=== PATIENT | male | born 1990 | race Caucasian/White ===

== ENCOUNTER 2019-08-10 13:15 | Emergency (ER) | payer SELFPAY ==
[~2019-08-10] VITALS: Ht 175.3 cm; Wt 90.7 kg
[~2019-08-10 13:15] MED LIST: PRED20TA PO
[2019-08-10] MEDS ORDERED: IV NORMAL SALINE 1000ML BAG 1,000 ML IV ONE (14:00)
[2019-08-10] MEDS ORDERED: MORPHINE SULFATE 4 MG/ML VIAL. IV ONE (14:15)
[2019-08-10] MEDS ORDERED: ONDANSETRON PF 4 MG/2 ML VIAL. IV ONE (14:15)
--- NOTE | 2019-08-10 14:24 | RAD ---
Study: CT abdomen and pelvis without contrast Indication: Right flank pain. Comparison: None. Technique: Helical CT imaging performed of the abdomen and pelvis without the use of intravenous contrast. Sagittal and coronal reformats were obtained. Findings: The visualized lungs and heart are unremarkable. Small right middle lobe calcified granuloma. The liver, spleen, adrenal glands, pancreas, kidneys and stomach are within normal limits. Nonobstructed small bowel. The appendix is normal. Unremarkable colon. No free fluid or air. No pathologically enlarged lymph nodes. Normal caliber of the major vascular structures. No acute osseous abnormality. The last well-formed disc space is designated L5-S1 there is a partially formed disc space at S1-S2 with lumbarization of the S1 vertebral body and bilateral pseudoarticulation formation. Impression: No acute abnormality seen throughout the abdomen or pelvis to account for the patient's symptoms. Specifically, no nephrolithiasis or hydroureteronephrosis bilaterally. Electronically signed by: MARGARITA MATOS MD (08/10/2019 2:21 PM) [facility]
--- NOTE | 2019-08-10 14:34 | RAD ---
Scrotal ultrasound HISTORY: Right testicle pain after lifting. FINDINGS: Right side: Right testicle measures 4.6 x 2.4 x 2.4 cm, with homogeneous echotexture and vascularity. No focal lesion. Right epididymis unremarkable. Small hydrocele. No obvious hernia is identified in the right groin. Left side: Testicle measures 4.3 x 2.9 x 2.2 cm. Homogeneous echotexture and vascularity. No focal lesion is seen. Left epididymis unremarkable. Small hydrocele. IMPRESSION: 1. Small hydroceles bilaterally. 2. No evidence of sonographic testicle or epididymis abnormality. Electronically signed by: Bijan Bucio MD (08/10/2019 2:31 PM) [facility]
[2019-08-10 14:45] LABS: BILIRUBIN,URINE NEGATIVE (NEG); CLARITY,URINE CLEAR; COLOR,URINE AMBER; NITRITE,URINE NEGATIVE (NEG); PH,URINE 5.5; PROTEIN,URINE NEGATIVE (NEG-TRACE)
--- NOTE | 2019-08-10 14:52 | PHYS DOC ---
Past Medical History Past Medical History: Kidney Stone Past Surgical History: Other Additional Information: chewing tobacco daily Alcohol Use: Rarely Drug Use: Marijuana Adult General Chief Complaint Chief Complaint: TESTICULAR PAIN OR INJURY HPI HPI Patient is a 29 year old male who presents to the ER with complaints of sudden onset of R testicle pain after feeling something bulge in his R groin after lifting heavy bricks. He reports a history of kidney stones and states that he has also had increased frequency of urination and dysuria for several days. He currently complains of R flank, R groin, and R testicle pain. His pain is currently a 9/10, there are no alleviating factors. Review of Systems Review of Systems Constitutional: Denies fever or chills [] Eyes: Denies change in visual acuity, redness, or eye pain [] HENT: Denies nasal congestion or sore throat [] Respiratory: Denies cough or shortness of breath [] Cardiovascular: No additional information not addressed in HPI [] GI: Denies nausea, vomiting, bloody stools or diarrhea; see HPI : Denies hematuria; see HPI Musculoskeletal: Denies joint pain or CVA tenderness [] Integument: Denies rash or skin lesions [] Neurologic: Denies headache Complete systems were reviewed and found to be within normal limits, except as documented in this note. Current Medications Current Medications Current Medications Medications (Trade) Dose Ordered Sig/Ac Start Time Stop Time Status Last Admin Dose Admin Azithromycin (Zithromax) 1,000 mg 1X ONCE 08/10/19 15:30 08/10/19 15:31 DC 08/10/19 16:24 1,000 MG Ceftriaxone Sodium (Rocephin Im) 250 mg 1X ONCE 08/10/19 15:30 08/10/19 15:31 Cancel Ceftriaxone Sodium (Rocephin) 0.25 gm 1X ONCE 08/10/19 15:45 08/10/19 15:46 DC 08/10/19 16:24 0.25 GM Morphine Sulfate (Morphine Sulfate) 4 mg 1X ONCE 08/10/19 14:15 08/10/19 14:16 DC 08/10/19 15:10 4 MG Ondansetron HCl (Zofran) 4 mg 1X ONCE 08/10/19 14:15 08/10/19 14:16 DC 08/10/19 15:10 4 MG Sodium Chloride 1,000 ml @ 1,000 mls/hr 1X ONCE 08/10/19 14:00 08/10/19 14:59 DC 08/10/19 14:49 1,000 MLS/HR Allergies Allergies Allergies Coded Allergies Type Severity Reaction Last Updated Verified No Known Drug Allergies 04/02/16 No Physical Exam Physical Exam Constitutional: Well developed, well nourished, no acute distress, non-toxic appearance. [] HENT: Normocephalic, atraumatic, bilateral external ears normal, nose normal. [] Eyes: PERRLA, EOMI, conjunctiva normal, no discharge. [] Neck: Normal range of motion, no tenderness, supple, no stridor. [] Cardiovascular:Heart rate regular rhythm, no murmur [] Lungs & Thorax: Bilateral breath sounds clear to auscultation [] Abdomen: Bowel sounds normal, soft, no tenderness, no masses, no pulsatile masses. : R testicle tender to palpation no erythema, no warmth, no urethral erythema [] Skin: Warm, dry, no erythema, no rash. [] Back: No CVA tenderness. [] Extremities: No cyanosis, no clubbing, ROM intact, no edema. [] Neurologic: Alert and oriented X 3,no focal deficits noted. [] Psychologic: Affect normal, judgement normal, mood normal. [] Current Patient Data Vital Signs Vital Signs Date Time Temp Pulse Resp B/P (MAP) Pulse Ox O2 Delivery O2 Flow Rate FiO2 08/10/19 15:10 16 99 Room Air 08/10/19 13:30 97.8 111 137/79 (98) 97.8 Lab Values Laboratory Tests Test 08/10/19 14:35 08/10/19 14:45 Urine Collection Type Unknown Urine Color Lindsey Urine Clarity Clear Urine pH 5.5 Urine Specific Sherman >=1.030 Urine Protein Negative mg/dL (NEG-TRACE) Urine Glucose (UA) Negative mg/dL (NEG) Urine Ketones (Stick) Negative mg/dL (NEG) Urine Blood Negative (NEG) Urine Nitrite Negative (NEG) Urine Bilirubin Negative (NEG) Urine Urobilinogen Dipstick 1.0 mg/dL (0.2 mg/dL) Urine Leukocyte Esterase Small (NEG) Urine RBC 0 /HPF (0-2) Urine WBC 11-20 /HPF (0-4) Urine Squamous Epithelial Cells Occ /LPF Urine Bacteria Few /HPF (0-FEW) Urine Mucus Marked /LPF White Blood Count 7.7 x10^3/uL (4.0-11.0) Red Blood Count 5.22 x10^6/uL (4.30-5.70) Hemoglobin 16.1 g/dL (13.0-17.5) Hematocrit 45.9 % (39.0-53.0) Mean Corpuscular Volume 88 fL (79-100) Mean Corpuscular Hemoglobin 31 pg (25-35) Mean Corpuscular Hemoglobin Concent 35 g/dL (31-37) Red Cell Distribution Width 13.2 % (11.5-14.5) Platelet Count 280 x10^3/uL (140-400) Neutrophils (%) (Auto) 65 % (31-73) Lymphocytes (%) (Auto) 25 % (24-48) Monocytes (%) (Auto) 9 % (0-9) Eosinophils (%) (Auto) 1 % (0-3) Basophils (%) (Auto) 0 % (0-3) Neutrophils # (Auto) 5.0 x10^3/uL (1.8-7.7) Lymphocytes # (Auto) 1.9 x10^3/uL (1.0-4.8) Monocytes # (Auto) 0.7 x10^3/uL (0.0-1.1) Eosinophils # (Auto) 0.0 x10^3/uL (0.0-0.7) Basophils # (Auto) 0.0 x10^3/uL (0.0-0.2) Sodium Level 142 mmol/L (136-145) Potassium Level 3.4 mmol/L (3.5-5.1) L Chloride Level 104 mmol/L (98-107) Carbon Dioxide Level 29 mmol/L (21-32) Anion Gap 9 (6-14) Blood Urea Nitrogen 17 mg/dL (8-26) Creatinine 1.2 mg/dL (0.7-1.3) Estimated GFR (Cockcroft-Gault) 72.6 BUN/Creatinine Ratio 14 (6-20) Glucose Level 98 mg/dL (70-99) Calcium Level 10.0 mg/dL (8.5-10.1) Total Bilirubin 0.7 mg/dL (0.2-1.0) Aspartate Amino Transferase (AST) 32 U/L (15-37) Alanine Aminotransferase (ALT) 71 U/L (16-63) H Alkaline Phosphatase 86 U/L (46-116) Total Protein 8.5 g/dL (6.4-8.2) H Albumin 4.3 g/dL (3.4-5.0) Albumin/Globulin Ratio 1.0 (1.0-1.7) Laboratory Tests 08/10/19 14:45 Laboratory Tests 08/10/19 14:45 EKG EKG [] Radiology/Procedures Radiology/Procedures PROCEDURE: CT ABDOMEN PELVIS WO CONTRAST Study: CT abdomen and pelvis without contrast Indication: Right flank pain. Comparison: None. Technique: Helical CT imaging performed of the abdomen and pelvis without the use of intravenous contrast. Sagittal and coronal reformats were obtained. Findings: The visualized lungs and heart are unremarkable. Small right middle lobe calcified granuloma. The liver, spleen, adrenal glands, pancreas, kidneys and stomach are within normal limits. Nonobstructed small bowel. The appendix is normal. Unremarkable colon. No free fluid or air. No pathologically enlarged lymph nodes. Normal caliber of the major vascular structures. No acute osseous abnormality. The last well-formed disc space is designated L5-S1 there is a partially formed disc space at S1-S2 with lumbarization of the S1 vertebral body and bilateral pseudoarticulation formation. Impression: No acute abnormality seen throughout the abdomen or pelvis to account for the patient's symptoms. Specifically, no nephrolithiasis or hydroureteronephrosis bilaterally.[] PROCEDURE: TESTICULAR/SCROTUM Scrotal ultrasound HISTORY: Right testicle pain after lifting. FINDINGS: Right side: Right testicle measures 4.6 x 2.4 x 2.4 cm, with homogeneous echotexture and vascularity. No focal lesion. Right epididymis unremarkable. Small hydrocele. No obvious hernia is identified in the right groin. Left side: Testicle measures 4.3 x 2.9 x 2.2 cm. Homogeneous echotexture and vascularity. No focal lesion is seen. Left epididymis unremarkable. Small hydrocele. IMPRESSION: 1. Small hydroceles bilaterally. 2. No evidence of sonographic testicle or epididymis abnormality. Course & Med Decision Making Course & Med Decision Making Pertinent Labs and Imaging studies reviewed. (See chart for details) dx: UTI, suspected STI, R orchitis CBC and CMP unremarkable; UA concerning for 11-[address] abd/pel negative, Testicular US negative Pt given 1 gm PO zithromax, 250 IV rocephin in the ER for suspected STI Prescription written for keflex 500 mg QID x7 days Pt was given 1L NS 4 mg of morphine and 4 mg of zofran in the ER, reports decrea sed pain after meds. PT instructed to follow up with Urology or PCP for further evaluation of chronic increased urinary frequency concerns. Patient verbalized an understanding of home care, medications, follow-up, and return to ED instructions and was in agreement with the plan of care. [] Dragon Disclaimer Dragon Disclaimer This electronic medical record was generated, in whole or in part, using a voice recognition dictation system. Departure Departure Impression: Primary Impression: Urinary tract infection Additional Impressions: Contact with and (suspected) exposure to infections with a predominantly sexual mode of transmission Orchitis of right testicle Disposition: HOME, SELF-CARE Condition: STABLE Referrals: NO PCP (PCP) EVAN MOORE MD Patient Instructions: Orchitis, Urinary Tract Infection, [id number] Additional Instructions: Fill prescription and use as directed. Follow up with a primary care doctor or Dr. Moore for further evaluation of your chronic problems with urination. Scripts Cephalexin (KEFLEX) 500 Mg Capsule 500 MG PO QID for 7 Days, #28 CAP 0 Refills Prov: DANIAL GANDHI APRN 08/10/19 Problem Qualifiers Primary Impression: Urinary tract infection Urinary tract infection type: site unspecified Hematuria presence: without hematuria Qualified Codes: N39.0 - Urinary tract infection, site not specified DANIAL GANDHI APRN Aug 10, 2019 14:52
[2019-08-10 14:58] LABS: BASO % 0 % (0-3); EOS % 1 % (0-3); HEMATOCRIT 45.9 % (39.0-53.0); HEMOGLOBIN 16.1 g/dL (13.0-17.5); LYMPH # 1.9 x10^3/uL (1.0-4.8); LYMPH % 25 % (24-48); MEAN CORPUSCULAR HEMOGLOBIN 31 pg (25-35); MEAN CORPUSCULAR HGB CONC 35 g/dL (31-37); MEAN CORPUSCULAR VOLUME 88 fL (79-100); MONO # 0.7 x10^3/uL (0.0-1.1); MONO % 9 % (0-9); NEUT % 65 % (31-73); PLATELET COUNT 280 x10^3/uL (140-400); RED BLOOD COUNT 5.22 x10^6/uL (4.30-5.70); RED CELL DISTRIBUTION WIDTH 13.2 % (11.5-14.5); WHITE BLOOD COUNT 7.7 x10^3/uL (4.0-11.0)
[2019-08-10 15:06] LABS: SQUAMOUS EPITHELIAL CELL,UR OCC /LPF
[2019-08-10 15:07] LABS: RBC,URINE 0 /HPF (0-2)
[2019-08-10 15:08] LABS: BACTERIA,URINE FEW /HPF (0-FEW)
[2019-08-10 15:08] LABS: CREATININE 1.2 mg/dL (0.7-1.3); GFR 72.6; POTASSIUM 3.4 mmol/L (3.5-5.1)
[2019-08-10 15:14] LABS: ALBUMIN 4.3 g/dL (3.4-5.0); TOTAL BILIRUBIN 0.7 mg/dL (0.2-1.0); TOTAL PROTEIN 8.5 g/dL (6.4-8.2)
[2019-08-10] MEDS ORDERED: cefTRIAXone IM 250 MG VIAL IM ONE (15:30)
[2019-08-10] MEDS ORDERED: AZITHROMYCIN 250 MG TABLET. PO ONE (15:30)
[2019-08-10] MEDS ORDERED: CEPH-264 PO (15:40)
[2019-08-10] MEDS ORDERED: cefTRIAXone IV Push 1 GM VIAL. IVP ONE (15:45)
[2019-08-10 16:30] VITALS: BP 117/73
== END 2019-08-10 17:12 | disposition home or self-care (01) ==
LOC: ER 13:15
DX: N39.0 Urinary tract infection, site not specified (principal); N45.2 Orchitis; Z20.2 Contact with and (suspected) exposure to infections with a predominantly sexual mode of transmission; Z87.442 Personal history of urinary calculi
CPT/HCPCS: 36415; 74176; 76870; 80053; 81001; 85025; 87086; 87491; 87591; 96374; 96375; 99285; J0696; J2270; J2405; J7030; Q0144

== ENCOUNTER 2020-07-24 20:57 | Emergency (ER) | payer SELFPAY ==
[~2020-07-24] VITALS: Ht 175.3 cm; Wt 80.0 kg
[~2020-07-24 20:57] MED LIST changes: +CEPH-264 PO
[2020-07-24 21:09] VITALS: BP 134/61
--- NOTE | 2020-07-24 21:25 | PHYS DOC ---
Past Medical History Past Medical History: Kidney Stone Past Surgical History: Other Smoking Status: Never Smoker Alcohol Use: Rarely Drug Use: Marijuana General Adult EDM: Chief Complaint: WRIST PAIN HPI: HPI: 30-year-old male who denies any significant past medical history presents to the ED with complaints of right lateral distal wrist pain that occurred after patient accidentally fell out on outstretched hand just prior to arrival. Patient states he was walking outside of his trailer and tripped forward landed on an extended right wrist and states his fingers extended backwards and touch his forearm. This is his dominant hand. Points to his distal ulnar and says "this bone is not supposed to be there." Took Motrin 3 hours ago. Denies any alcohol or drug use tonight. No prior injury to this hand. Did not hit his head or lose consciousness. Is not on any anticoagulants. ROS: Denies associated fever, chills, cough, sore throat, dyspnea, chest pain, nausea, vomiting, diarrhea, headache, midline neck pain or neck stiffness, lack of sensation or neurologic deficits, elbow or shoulder pain, bleeding or skin break. Review of Systems: Review of Systems: Constitutional: Denies fever or chills. [] Eyes: Denies change in visual acuity. [] HENT: Denies nasal congestion or sore throat. [] Respiratory: Denies cough or shortness of breath. [] Cardiovascular: Denies chest pain or edema. [] GI: Denies abdominal pain, nausea, vomiting, Musculoskeletal: Denies back pain Integument: Denies rash. [] Neurologic: Denies headache, focal weakness or sensory changes. [] Lymphatic: Denies swollen glands. [] Psychiatric: Denies depression or anxiety. [] Heart Score: Risk Factors: Risk Factors: DM, Current or recent (<one month) smoker, HTN, HLP, family history of CAD, obesity. Risk Scores: Score 0 - 3: 2.5% MACE over next 6 weeks - Discharge Home Score 4 - 6: 20.3% MACE over next 6 weeks - Admit for Clinical Observation Score 7 - 10: 72.7% MACE over next 6 weeks - Early Invasive Strategies Allergies: Allergies: Allergies Coded Allergies Type Severity Reaction Last Updated Verified No Known Drug Allergies 04/02/16 No Physical Exam: PE: Constitutional: Well developed, well nourished, no acute distress, has right arm up in air/extended "this stops the tingling" HENT: Normocephalic, atraumatic, Eyes: EOMI, conjunctiva normal, no discharge. [] Neck: Normal range of motion, no tenderness, supple, no stridor. [] Cardiovascular:Heart rate regular rhythm, Lungs & Thorax: Speaking in full sentences, bilateral equal chest rise Abdomen: soft, no tenderness, Skin: Warm, dry, no erythema, no rash. [] Back: No tenderness, no CVA tenderness. [] Extremities: +ttp distal right ulnar-painful wrist extension, no pain w/flexion, no obvious deformity, no ttp right shoulder/elbow, no scaphoid or lunate ttp, no cyanosis, no clubbing, Neurologic: Alert and oriented X 3, normal motor function, normal sensory function, no focal deficits noted. [] Psychologic: Affect normal, judgement normal, mood normal. [] EKG: EKG: [] Radiology/Procedures: Radiology/Procedures: []IMAGING REPORT Signed PATIENT: WILLY HART: [id number] : 1990 LOCATION: ER AGE: 30 SEX: M EXAM STATUS: PRE ER ORD. PHYSICIAN: KATHY ROSSI DO REASON: right wrist pain after fall PROCEDURE: FOREARM RIGHT Study: 1. CR FOREARM RIGHT 2. CR HAND RIGHT 3V Indication: Pain after a fall. Comparison: None. Findings: Forearm: No acute fracture. Elbow alignment is maintained. No elbow joint effusion. Right hand: No acute fracture or traumatic malalignment. Maintained joint spaces. No retained radiopaque foreign body within soft tissues. Impression: Right forearm/hand: No acute osseous abnormality. Electronically signed by: MARGARITA MATOS MD (07/24/2020 9:40 PM) [id number] DICTATED and SIGNED BY: MARGARITA MATOS MD DATE: 07/24/202139 Course & Med Decision Making: Course & Med Decision Making Pertinent Labs and Imaging studies reviewed. (See chart for details) Concern for sprain right wrist, dominant hand, imaging showing no apparent fracture. Cannot exclude any ligamentous injury. Conservative management with wrist splint and recommend [id number] Tylenol/ibuprofen for pain. Will refer to hand surgery, may need repeat images in 1 week if symptoms do not improve. Strict ED return precautions were given for severe pain, neurologic deficits, sensory or motor deficits. Encouraged urgent outpatient follow-up with PMD and hand/orthopedic surgery. Life-threatening processes were considered but are low suspicion at this time, given history and physical exam. Pt was educated on all prescription medications and adverse effects. All patient's questions were answered and pt was stable at time of discharge. Differential includes intracranial hemorrhage, diffuse axonal injury, spinal cord syndrome, unstable cervical fracture or SCIWORA, fractures or joint dislocations, neurovascular injuries, organ injury or laceration, pneumothorax, pneumoperitoneum, pericardial tamponade, unstable pelvic fracture, compartment syndrome, flail chest or respiratory distress, burn injury or asphyxiation I spoken with the patient and her caregivers. I explained the patient's condition, diagnoses and treatment plan based on the information available to me at this time. I have answered the patient and her caregiver's questions and addressed any concerns. The patient and her caregivers have a good understanding of patient's diagnosis, condition and treatment plan as can be expected at this point. Vital signs have been stable. Patient's condition is stable and appropriate for discharge from the emergency department. Patient will pursue further outpatient evaluation with primary care physician or other designated or consulting physician as outlined in the discharge instructions. The patient and/or caregivers are agreeable to this plan of care and follow-up instructions have been explained in detail. The patient and/or caregivers have received these instructions in written form and have expressed an understanding of the discharge instructions. The patient and/or caregivers are aware that any significant change of condition or worsening of symptoms should prompt immediate return to this or the closest emergency department or call to 911. Ramirez Disclaimer: Ramirez Disclaimer: This electronic medical record was generated, in whole or in part, using a voice recognition dictation system. Departure Departure Impression: Primary Impression: Right wrist sprain Additional Impression: Right wrist injury Disposition: HOME, SELF-CARE Condition: STABLE Referrals: NO PCP (PCP) Patient Instructions: Wrist Splint, Wrist Sprain with [facility] Additional Instructions: Hand and Upper Extremity Plastic Surgery[facility] [phone] Scripts Ibuprofen (IBUPROFEN) 600 Mg Tablet 600 MG PO PRN Q6HRS PRN for PAIN, #20 TAB take with food or milk Prov: KATHY ROSSI DO 07/24/20 Justicifation of Admission Dx: Justifications for Admission: Justification of Admission Dx: N/A KATHY ROSSI DO Jul 24, 2020 21:25
--- NOTE | 2020-07-24 21:43 | RAD ---
Study: 1. CR FOREARM RIGHT 2. CR HAND RIGHT 3V Indication: Pain after a fall. Comparison: None. Findings: Forearm: No acute fracture. Elbow alignment is maintained. No elbow joint effusion. Right hand: No acute fracture or traumatic malalignment. Maintained joint spaces. No retained radiopaque foreign body within soft tissues. Impression: Right forearm/hand: No acute osseous abnormality. Electronically signed by: MARGARITA MATOS MD (07/24/2020 9:40 PM) [id number]
[2020-07-24] MEDS ORDERED: IBUP-1007 PO (21:52)
[2020-07-24] MEDS ORDERED: HYDROcodone/APAP 10/325 1 TAB TABLET PO ONE (22:00)
== END 2020-07-24 22:01 | disposition home or self-care (01) ==
LOC: ER 20:57
DX: S63.591A Other specified sprain of right wrist, initial encounter (principal); M79.631 Pain in right forearm; F12.90 Cannabis use, unspecified, uncomplicated; Z87.891 Personal history of nicotine dependence; Z98.890 Other specified postprocedural states; W01.0XXA Fall on same level from slipping, tripping and stumbling without subsequent striking against object, initial encounter; Y93.89 Activity, other specified; Y92.89 Other specified places as the place of occurrence of the external cause; Y99.8 Other external cause status
CPT/HCPCS: 73090; 73130; 99284